=== PATIENT | female | born 1980 | race Caucasian/White ===

== ENCOUNTER 2016-12-23 21:51 | Emergency (ER) | payer OTHER ==
[2016-12-23 22:04] VITALS: BP 162/99; BMI 36.6
--- NOTE | 2016-12-23 22:23 | DR.GENAD ---
HPI - PCP Primary Care Physician: [email or web address] - HPI Comment HPI Comment: HISTORY REFLUS. HAVE SHARP EPIGASTRIC PAIN THAT IS NOT GOING AWAY. PATIENT TOOK TUMS WITH RELIEF. SHE ALSO HAVE LOWER BACK PAIN WITH HOT AND COLD FEELING. NO CHILLS. DENIES FEVER OR DYSURIA. - Complaint/Symptoms Chief Complaint Doctors Comments: EPIGASTRIC PAIN, AND FLUSH FEELING TODAY. Chief Complaint:: PT HURTING IN UPPER ABDOMEN, FEELING LIKE SHE IS FLUSHED/HOT WITH PAIN IN LOWER BACK. Self Treatment fo Chief Complaint: PT STATES SHE HAS ATE A WHOLE BOTTLE OF TUMS TODAY - Nurses notes reviewed Nurses Notes Review: Yes - Source History Provided: Patient - Mode of Arrival Mode of Arrival: Ambulatory - Timing Onset of Chief Complaint: 12/23/16 Came on: Suddenly - Duration Duration: Constant Duration: Hours - Severity Severity: Moderate PMH - PMH Past Medical History: Yes Past Medical History: Anxiety, Asthma, Hypertension Past Surgical History: Yes Surgical History: , Cholecystectomy, [employer] Surgery, Hysterectomy - Family History History of Family Medical Conditions: Yes Family Medical History: Diabetes Mellitus, [place], Hypertension - Social History Does patient currently use any type of tobacco product: No Have you used tobacco products in the last 12 months: No Type of Tobacco Use: None Does any household member use tobacco: No Alcohol Use: None Do you use any recreational Drugs:: No Lives With: Family Lives Where: Home - infectious screening In the last 2 months have you had wt loss of >10#?: NO Have you had fever, night sweats or hemotysis?: No Have you traveled outside the country in the last 6 months?: No Isolation: Standard ROS - Review of Systems Constitutional: No Symptoms Reported. negative: Chills, Fever, Weakness, Fatigue, Loss of Appetite Eyes: No Symptoms Reported. negative: Eye Pain, Discharge ENTM: Ear Pain, Nose Congestion, Throat Pain. negative: Nose Discharge Respiratoy: No Symptoms Reported. negative: Productive Cough, Non-Productive Cough, Short of Breath, Wheezing Cardiovascular: No Symptoms Reported, Other (EPIGASTRIC PAIN) Gastrointestinal/Abdominal: Abdominal Pain, Nausea. negative: Diarrhea, Vomiting Genitourinary: No Symptoms Reported. negative: Discharge, Dysuria, Frequency, Hematuria Neurological: No Symptoms Reported. negative: Headache, Weakness, Dizziness Musculoskeletal: Back Pain Integumentary: No Symptoms Reported Hematologic/Lymphatic: No Symptoms Reported Endocrine: Flushing All Other Systems: Reviewed and Negative PE - Vital Signs Vitals: Temperature 98.2 F Pulse Rate 80 Respiratory Rate 22 Blood Pressure 162/99 O2 Sat by Pulse Oximetry 97 - General Limitations: No Limitations General Appearance: Alert - Head Head Exam: Normal Inspection - Eyes Eye exam: Normal Appearance - ENT ENT Exam: Normal External Ear Exam External Ear Exam: Normal External Inspection TM/Canal Exam: Bilateral Bulging Nose Exam: Normal Nose Exam Mouth Exam: Normal Inspection Throat Exam: Tonsillar Erythema - Neck Neck Exam: Trachea Midline - Chest Chest Inspection: Symmetric Chest Wall Rise - Respiratory Respiratory Exam: Normal Lung Sounds Bilat Respiratory Exam: Bilateral Clear to Auscultation - Cardiovascular Cardiovascular Exam: Regular Rate, Normal Rhythm, Normal Heart Sounds - Abdominal Exam Abdominal Exam: Normal Bowel Sounds, Tenderness (EP) Abdominal Tenderness: Epigastrium, Moderate - Extremities Extremities Exam: Normal Inspection - Back Back Exam: Normal Inspection - Neurologic Neurological Exam: Alert, Oriented X3, CN II-XII Intact, Normal Gait, Reflexes Normal. negative: Motor Sensory Deficit - Psychiatric Psychiatric Exam: Anxious - Skin Skin Exam: Normal Color MDM - Differential Diagnosis Differential Diagnosis: PUD, REFLUX, GASTRITIS, UTI, BACK PAIN, CHOLELITHIASIS Course - Treatment Treatment: SEE ORDERS. - Reevaluation 1st: Improved (WITH GI MEDS IN ED.) - Education/Counseling Education/Counseling: Patient, Education Educated On: Treatment, Diagnosis, Needs for Follow Up ROR - Labs Reviewed Laboratory Results Reviewed?: Yes Result Diagrams: 12/23/16 22:35 12/23/16 22:35 Laboratory: WBC 11.0 X10^3/uL (3.6-10.0) H 12/23/16 22:35 RBC 4.58 X10^6/uL (3.5-5.4) 12/23/16 22:35 Hgb 14.6 g/dL (12.0-16.0) 12/23/16 22:35 Hct 41.4 % (36.0-47.0) 12/23/16 22:35 MCV 90.4 fL (80.0-100.0) 12/23/16 22:35 MCH 31.9 pg (27.0-34.0) 12/23/16 22:35 MCHC 35.3 g/dL (33.0-35.0) H 12/23/16 22:35 RDW 13.8 % (11.6-16.5) 12/23/16 22:35 Plt Count 277 X10^3/uL (150.0-450.0) 12/23/16 22:35 MPV 10.2 fL (7.4-11.0) 12/23/16 22:35 Neut % 58.6 % (42.0-75.0) 12/23/16 22:35 Lymph % 30.0 % (21.0-51.0) 12/23/16 22:35 Mercer % 7.5 % (0.0-13.0) 12/23/16 22:35 Eos % 3.1 % (0.9-2.9) H 12/23/16 22:35 Baso % 0.8 % (0.2-1.0) 12/23/16 22:35 Neut # 6.5 x10^3/uL (2.2-4.8) H 12/23/16 22:35 Lymph # 3.3 X10^3/uL (1.3-2.9) H 12/23/16 22:35 Mercer # 0.8 x10^3/uL (0.3-0.8) 12/23/16 22:35 Eos # 0.3 x10^3/uL (0.0-0.2) H 12/23/16 22:35 Baso # 0.1 X10^3/uL (0.0-0.1) 12/23/16 22:35 Absolute Nucleated RBC 0.0 /100WBC 12/23/16 22:35 Sodium 142 mmol/L (136-145) 12/23/16 22:35 Corrected Sodium TNP 12/23/16 22:35 Potassium 3.8 mmol/L (3.5-5.1) 12/23/16 22:35 Chloride 108 mmol/L (98-107) H 12/23/16 22:35 Carbon Dioxide 27.3 mmol/L (21-32) 12/23/16 22:35 BUN 7 mg/dL (7-18) 12/23/16 22:35 Creatinine 0.80 mg/dL (0.55-1.02) 12/23/16 22:35 Est GFR (MDRD) Af Amer > 60 (>60) 12/23/16 22:35 Est GFR (MDRD) Non-Af > 60 (>60) 12/23/16 22:35 Glucose 80 mg/dL (65-99) 12/23/16 22:35 Calcium 8.9 mg/dL (8.5-10.1) 12/23/16 22:35 Corrected Calcium TNP 12/23/16 22:35 Total Bilirubin 0.40 mg/dL (0.2-1.0) 12/23/16 22:35 AST 11 Units/L (15-37) L 12/23/16 22:35 ALT 23 Units/L (12-78) 12/23/16 22:35 Alkaline Phosphatase 55 Units/L (46-116) 12/23/16 22:35 Total Protein 7.1 g/dL (6.4-8.2) 12/23/16 22:35 Albumin 3.7 g/dL (3.4-5.0) 12/23/16 22:35 Globulin 3.4 g/dL (2.5-4.5) 12/23/16 22:35 Albumin/Globulin Ratio 1.1 Ratio (1.1-2.1) 12/23/16 22:35 Specimen Type Clean catch urine 12/23/16 22:35 Urine Color Yellow (YELLOW) 12/23/16 22:35 Urine Appearance Clear (CLEAR) 12/23/16 22:35 Urine pH 5.0 (5.0 - 8.0) 12/23/16 22:35 Ur Specific [place] 1.015 (1.000-1.030) 12/23/16 22:35 Urine Protein Negative (NEGATIVE) 12/23/16 22:35 Urine Glucose (UA) Negative (NEGATIVE) 12/23/16 22:35 Urine Ketones Negative (NEGATIVE) 12/23/16 22:35 Urine Occult Blood 1+ (NEGATIVE) 12/23/16 22:35 Urine Nitrite Negative (NEGATIVE) 12/23/16 22:35 Urine Bilirubin Negative (NEGATIVE) 12/23/16 22:35 Urine Urobilinogen Normal (NORMAL) 12/23/16 22:35 Ur Leukocyte Esterase Negative (NEGATIVE) 12/23/16 22:35 Urine RBC 3-5 /HPF (NEGATIVE) 12/23/16 22:35 Urine WBC 0-2 /HPF (NEGATIVE) 12/23/16 22:35 Ur Squamous Epith Cells Rare /HPF (NEGATIVE) 12/23/16 22:35 Urine Bacteria Trace /HPF (NEGATIVE) 12/23/16 22:35 Ur Culture Indicated? No/not indicated 12/23/16 22:35 - Diagnosis Discharge Problem: Sinusitis Qualifiers: Sinusitis location: unspecified location Chronicity: acute Recurrence: not specified as recurrent Qualified Code(s): J01.90 - Acute sinusitis, unspecified Gastroesophageal reflux Qualifiers: Esophagitis presence: with esophagitis Qualified Code(s): K21.0 - Gastro- esophageal reflux disease with esophagitis Back pain Qualifiers: Back pain location: low back pain Chronicity: acute Back pain laterality: bilateral Sciatica presence: without sciatica Qualified Code(s): M54.5 - Low back pain - Discharge Plan Disposition: HOME, SELF-CARE Condition: Stable Prescriptions: Azithromycin [ZITHROMAX Tab 250 mg *] 1 dose PO DAILY #6 tab Gi Cocktail [LEVSIN/Maalox/Lidoc Visc (GI COCKTAIL) *] 30 ml PO QID PRN #240 ml PRN Reason: Ranitidine HCl [ZANTAC TAB 150 MG *] 150 mg PO BID #60 tab - Follow ups/Referrals Follow ups/Referrals: MENA BATISTA [Primary Care Provider] - 3 days - Instructions Instructions: Sinusitis, Adult, [id number], Back Pain, Adult, [id number], Gastroesophageal Reflux Disease, Adult, [id number] Additional Instructions: RETURN TO ED IF WORSE.
[2016-12-23] MEDS ORDERED: ZANTAC PO ONE ×2 (22:24→22:26)
[2016-12-23] MEDS ORDERED: LEVSIN/MAALOX/LIDOC VISC ONE (22:25)
[2016-12-23] MEDS ORDERED: LEVSIN/MAALOX/LIDOC VISC PO ONE (22:25)
[2016-12-23 22:52] LABS: BASOPHILS # (AUTO) 0.1 X10^3/uL (0.0-0.1); BASOPHILS % (AUTO) 0.8 % (0.2-1.0); EOSINOPHILS # (AUTO) 0.3 x10^3/uL (0.0-0.2); EOSINOPHILS % (AUTO) 3.1 % (0.9-2.9); HEMATOCRIT 41.4 % (36.0-47.0); HEMOGLOBIN 14.6 g/dL (12.0-16.0); LYMPHOCYTES # (AUTO) 3.3 X10^3/uL (1.3-2.9); MEAN CORPUSCULAR HEMOGLOBIN 31.9 pg (27.0-34.0); MEAN CORPUSCULAR HGB CONC 35.3 g/dL (33.0-35.0); MEAN CORPUSCULAR VOLUME 90.4 fL (80.0-100.0); MEAN PLATELET VOLUME 10.2 fL (7.4-11.0); MONOCYTES # (AUTO) 0.8 x10^3/uL (0.3-0.8); MONOCYTES % (AUTO) 7.5 % (0.0-13.0); NEUTROPHILS # (AUTO) 6.5 x10^3/uL (2.2-4.8); NEUTROPHILS % (AUTO) 58.6 % (42.0-75.0); PLATELET COUNT 277 X10^3/uL (150.0-450.0); RED BLOOD COUNT 4.58 X10^6/uL (3.5-5.4); RED CELL DISTRIBUTION WIDTH 13.8 % (11.6-16.5)
[2016-12-23 22:53] LABS: BILIRUBIN,URINE NEGATIVE (NEGATIVE); BLOOD/HEMOGLOBIN,URINE 1+ (NEGATIVE); GLUCOSE, URINE NEGATIVE (NEGATIVE); KETONES,URINE NEGATIVE (NEGATIVE); LEUKOCYTE ESTERASE ,URINE NEGATIVE (NEGATIVE); NITRITES,URINE NEGATIVE (NEGATIVE); PROTEIN,URINE NEGATIVE (NEGATIVE); UROBILINOGEN,URINE NORMAL (NORMAL)
[2016-12-23 22:58] LABS: APPEARANCE,URINE CLEAR (CLEAR); BACTERIA,URINE TRACE /HPF (NEGATIVE); COLOR,URINE YELLOW (YELLOW); SQUAMOUS EPITHELIAL CELL,UR RARE /HPF (NEGATIVE)
[2016-12-23 23:14] LABS: ALANINE AMINOTRANSFERASE 23 Units/L (12-78); ALBUMIN 3.7 g/dL (3.4-5.0); ALKALINE PHOSPHATASE 55 Units/L (46-116); ASPARTATE AMINO TRANSFERASE 11 Units/L (15-37); BLOOD UREA NITROGEN 7 mg/dL (7-18); CALCIUM 8.9 mg/dL (8.5-10.1); CARBON DIOXIDE 27.3 mmol/L (21-32); CHLORIDE 108 mmol/L (98-107); GLUCOSE 80 mg/dL (65-99); SODIUM 142 mmol/L (136-145); TOTAL PROTEIN 7.1 g/dL (6.4-8.2); eGFR BLACK RACES > 60 (>60); eGFR NON BLACK RACES > 60 (>60)
== END 2016-12-24 00:15 | disposition home or self-care (01) ==
LOC: ER 21:56
DX: J01.80 Other acute sinusitis (principal); J21.0 Acute bronchiolitis due to respiratory syncytial virus; M54.5 Low back pain
CPT/HCPCS: 36415; 80053; 81001; 85025; 99283